=== PATIENT | male | born 1975 | race Caucasian/White ===

== ENCOUNTER 2018-04-08 17:59 | Emergency (ER) | payer OTHER ==
[~2018-04-08] VITALS: Ht 172.7 cm; Wt 90.7 kg
[2018-04-08 18:14] VITALS: BP 141/84
[2018-04-08] MEDS ORDERED: PENI500T PO (18:26)
[2018-04-08] MEDS ORDERED: HYDR-3164 PO (18:27)
--- NOTE | 2018-04-08 18:27 | PHYS DOC ---
Adult General Chief Complaint Chief Complaint: DENTAL PROBLEM HPI HPI Patient is a 43 year old male who presents with yesterday began having right lower tooth pain with right lower jaw swelling and a low-grade fever. Patient does not currently have a dentist. Patient's pain a 7 out of 10. Patient has rheumatoid arthritis and takes hydrocodone's. Review of Systems Review of Systems Constitutional: Denies fever or chills [] Eyes: Denies change in visual acuity, redness, or eye pain [] HENT: Denies nasal congestion or sore throat [] Respiratory: Denies cough or shortness of breath [] Cardiovascular: No additional information not addressed in HPI [] GI: Denies abdominal pain, nausea, vomiting, bloody stools or diarrhea [] : Denies dysuria or hematuria [] Musculoskeletal: Denies back pain or joint pain [] Integument: Denies rash or skin lesions [] Neurologic: Denies headache, focal weakness or sensory changes [] Endocrine: Denies polyuria or polydipsia [] All other systems were reviewed and found to be within normal limits, except as documented in this note. Physical Exam Physical Exam Constitutional: Well developed, well nourished, no acute distress, non-toxic appearance. [] HENT: Normocephalic, atraumatic, bilateral external ears normal, oropharynx moist, no oral exudates, nose normal. [] Eyes: PERRLA, EOMI, conjunctiva normal, no discharge. [] Neck: Normal range of motion, no tenderness, supple, no stridor. [] Cardiovascular:Heart rate regular rhythm, no murmur [] Lungs & Thorax: Bilateral breath sounds clear to auscultation [] Abdomen: Bowel sounds normal, soft, no tenderness, no masses, no pulsatile masses. [] Skin: Warm, dry, no erythema, no rash. [] Back: No tenderness, no CVA tenderness. [] Extremities: No tenderness, no cyanosis, no clubbing, ROM intact, no edema. [] Neurologic: Alert and oriented X 3, normal motor function, normal sensory function, no focal deficits noted. [] Psychologic: Affect normal, judgement normal, mood normal. [] EKG EKG [] Radiology/Procedures Radiology/Procedures [] Course & Med Decision Making Course & Med Decision Making Patient is a 43 year old male who presents with yesterday began having right lower tooth pain with right lower jaw swelling and a low-grade fever. Patient does not currently have a dentist. Patient's pain a 7 out of 10. Patient has rheumatoid arthritis and takes hydrocodone's. Temp is 99.6. Alert and oriented. Hematuria with a steady gait. Skin is pink warm and dry. Denies nausea or vomiting. Patient has a right lower dental Tita with gum line redness and swelling. She is given prescription for penicillin and [place]. Dragon Disclaimer Dragon Disclaimer This electronic medical record was generated, in whole or in part, using a voice recognition dictation system. Departure Departure Impression: Primary Impression: Dental abscess Disposition: HOME, SELF-CARE Condition: STABLE Referrals: UNKNOWN PCP NAME (PCP) Patient Instructions: Dental Abscess Additional Instructions: Follow-up with the dentist tomorrow. Take medication as prescribed. Scripts Hydrocodone/Apap 5-325 (NORCO 5-325 TABLET) 1 Each Tablet 1 TAB PO PRN Q8HRS PRN for PAIN, #6 TAB 0 Refills Prov: PATEL MAGANA APRN 04/08/18 Penicillin V Potassium (PENICILLIN V POTASSIUM) 500 Mg Tablet 500 MG PO QID for 10 Days, #40 TAB 0 Refills Prov: PATEL MAGANA APRN 04/08/18 PATEL MAGANA APRN Apr 08, 2018 18:27
== END 2018-04-08 18:41 | disposition home or self-care (01) ==
LOC: ER 17:59
DX: K04.7 Periapical abscess without sinus (principal); M06.9 Rheumatoid arthritis, unspecified
CPT/HCPCS: 99283